=== PATIENT | female | born 1995 | race Caucasian/White ===

== ENCOUNTER → 2016-10-05 | Outpatient (CLI) | payer OTHER ==
--- NOTE | 2016-10-05 15:38 | DIAGNOSTIC IMAGING REPORT ---
ULTRASOUND LEFT LOWER EXTREMITY VENOUS CLINICAL HISTORY: Left leg pain. Reported history of recent DVT diagnosis. COMPARISON STUDY: No priors. TECHNIQUE: Real-time, grayscale, and color Doppler sonography of the deep veins of the left lower extremity was performed from the inguinal crease to the calf. Compression and augmentation were utilized. FINDINGS: There is newly occlusive deep venous thrombosis identified within the left common femoral vein and throughout the left superficial femoral vein. The popliteal vein is patent and normally compressible. The greater saphenous vein and the profunda femoris vein at the junction with the common femoral vein are clear. The visualized calf veins are patent. IMPRESSION: Nearly occlusive deep venous thrombosis is seen throughout the left common femoral vein and the left superficial femoral vein. Electronically signed by: Roger Lux M.D. 10/05/2016 3:37 PM Dictated Date/Time: 10/05/2016 3:36 PM
== END | disposition home or self-care (01) ==
LOC: C.ULTRBC 14:47
PROVIDERS: ATTEND Internal Medicine Hematology
DX: I82.412 Acute embolism and thrombosis of left femoral vein (principal); I82.812 Embolism and thrombosis of superficial veins of left lower extremity